=== PATIENT | female | born 1990 | race Caucasian/White ===

== ENCOUNTER 2021-08-05 00:13 | Inpatient (IN) ==
[2021-08-05] MEDS ORDERED: OXYTOCIN 30 UNITS/500 ML BAG IV PRN ×3 (00:41→08:12)
[2021-08-05] MEDS: LACTATED RINGER'S 1,000 ML IV PRN ×2 (01:11→02:12)
[2021-08-05] MEDS ORDERED: fentaNYL citrate 100 MCG/2 ML VIAL ONE (01:17)
[2021-08-05] MEDS ORDERED: ePHEDrine sulfate 50 MG/ML AMP ONE (01:17)
[2021-08-05] MEDS ORDERED: SODIUM CHLORIDE 0.9% INJ 10 ML VIAL ONE (01:17)
[2021-08-05] MEDS ORDERED: BUPIVACAINE 0.25% 30 ML VIAL ONE (01:17)
[2021-08-05] MEDS ORDERED: fentaNYL 2MCG/ML ROPIVACAINE 1.25MG/ML 100 ML BAG EPI ONE (01:18)
[2021-08-05 01:41] LABS: Hematocrit (blood only) 34.4 % (37-47); Hemoglobin 12.5 g/dL (12.0-16.0); Mean Corpuscular Hemoglobin 33.8 pg (25-34); Mean Corpuscular Hgb Conc 36.3 g/dL (32-36); Platelet Count 127 K/uL (130-400); Platelet Estimate Normal (Normal); RDW Coefficient of Variation 12.3 % (11.5-14.5)
[2021-08-05] MEDS ORDERED: diphenhydrAMINE 50 MG/ML VIAL IV PRN (01:51)
[2021-08-05] MEDS ORDERED: fentaNYL 2MCG/ML ROPIVACAINE 1.25MG/ML 100 ML BAG EPI PRN (01:51)
[2021-08-05] MEDS ORDERED: ePHEDrine sulfate 50 MG/ML AMP IV PRN (01:51)
[2021-08-05] MEDS ORDERED: NALBUPHINE HCL INJ 10 MG/ML AMP IV PRN (01:51)
[2021-08-05] MEDS ORDERED: NALOXONE HCL 1 MG in SODIUM CHLORIDE 0.9% 1000ML 1,000 ML IV PRN (01:51)
[2021-08-05] MEDS ORDERED: ONDANSETRON INJ 2 MG/ML 2 ML VIAL IV PRN (01:51)
[2021-08-05] MEDS ORDERED: NALOXONE HCL 0.4 MG/1 ML VIAL/CARP IV PRN (01:51)
--- NOTE | 2021-08-05 01:53 | Anesthesiology Consultation ---
Date of Service August 05, 2021 Assessment & Plan (1) Encounter for pre-operative examination: Chart Review Chart Review: Patient NOT seen in Pre Admission Testing and Acceptable Risk for Labor Epidural Consults Requested none History Height/Weight Height: 5 ft 4 in Weight: 67.132 kg Allergies Allergy/AdvReac Type Severity Reaction Status Date / Time No Known Allergies Allergy Verified 08/05/21 00:49 Medications Home Medications Medication Instructions Recorded Confirmed Last Taken albuterol sulfate 90 mcg/actuation 2 inh INHALATION DAILY PRN 06/05/21 08/05/21 Unknown aerosol inhaler (ProAir HFA) ferrous sulfate 325 mg (65 mg 325 mg PO DAILY 06/05/21 08/05/21 08/02/21 21:00 iron) tablet (Iron (ferrous sulfate)) fluticasone propionate 50 1 spray INTRANASAL DAILY 06/05/21 08/05/21 08/02/21 21:00 mcg/actuation nasal spray,suspension prenat.vits,arash,fbn-mhxf-icvor 1 tab PO DAILY 06/05/21 08/05/21 08/02/21 21:00 Active Medications Generic Name Dose Route Start Last Admin Trade Name Freq PRN Reason Stop Dose Admin Lactated Ringer's 1,000 mls @ 125 mls/hr 08/05/21 00:41 08/05/21 02:12 Lr IV 08/07/21 00:40 125 mls/hr .Q8H PRN Administration L&D Protocol Protocol Past Medical History Medical History Anemia Asthma Exercise / Class Metabolic Activity II 4-5 Yardwork/Stairs/Walk up hill Past Surgical History Surgical History Hx of LASIK Past Anesthesia History No Hx of Anesthesia Complications and No Family Hx of Anesthesia Complications History of PONV No Hx of PONV and No Hx of Motion Sickness Social History Smoking Status: Never smoker Hx Alcohol Use: No Hx Substance Use: No substance use type: does not use Physical Exam Vital Signs Last Vital Signs Temp 36.4 C L 08/05/21 00:46 Pulse 77 08/05/21 02:14 Resp 18 08/05/21 00:46 BP 110/69 08/05/21 00:46 Pulse Ox 100 08/05/21 02:14 Testing Laboratory Results 08/05/21 01:00
--- NOTE | 2021-08-05 06:00 | Communication Note ---
Date of Service: August 05, 2021 Pt with increasing pain. right sided hot spot notes. epidural catheter pulled back 1cm to 9-10 cm at skin. bolused 8ml of 2% lido with epi in divided doses. vss. pain somewhat improved but still with sig pressure. asked nurse to check patient with vaginal exam. nurse states patient is now complete and will soon start trial of pushing.
[2021-08-05] MEDS ORDERED: NURSING L&D Epidural Breakthrough Pain Update ONE (06:20)
[2021-08-05] MEDS ORDERED: LIDOCAINE 1% LOCAL 20 ML VIAL ONE (07:32)
[2021-08-05] MEDS ORDERED: ERYTHROMYCIN OP OINT 1 GM PKT ONE (07:46)
[2021-08-05] MEDS ORDERED: METHYLERGONOVINE MALEATE 0.2 MG/ML AMP ONE (08:11)
[2021-08-05] MEDS ORDERED: bisacodyL 10 MG SUPP PR PRN (08:12)
[2021-08-05] MEDS ORDERED: ACETAMINOPHEN 325 MG TAB PO PRN (08:12)
[2021-08-05] MEDS ORDERED: ACETAMINOPHEN W/CODEINE #3 1 TAB PO PRN (08:12)
[2021-08-05] MEDS ORDERED: BENZOCAINE 20% AER SPR 82.5 GM CAN EXT PRN (08:12)
[2021-08-05] MEDS ORDERED: HYDROCORTISONE ACETATE 25 MG SUPP PR PRN (08:12)
[2021-08-05] MEDS ORDERED: oxyCODONE/ACETAMINOPHEN 5mg/325mg TAB PO PRN (08:12)
[2021-08-05] MEDS ORDERED: DIPHTHERIA/TETANUS/PERTUSSIS 0.5 ML SYR/VIAL IM ONE (08:12)
[2021-08-05] MEDS ORDERED: METHYLERGONOVINE MALEATE 0.2 MG/ML AMP IM ONE (08:15)
--- NOTE | 2021-08-05 08:40 | Delivery Summary ---
DATE OF DELIVERY: 08/05/2021 DELIVERY NOTE: This is a note of a spontaneous vaginal delivery. The patient was admitted in active labor, 4-5 cm dilated with bulging membranes. After admission, she was fluid loaded, received epidu ral for pain control and then was started on IV Pitocin to augment her contractions. Subsequently mem branes were ruptured. There was some meconium noted in fluid. The went to full dilatation an d just with several pushes, she pushed out a live male infant via direct occiput anterior position ov er an intact perineum. The was suctioned through the mouth and the nose. Body was delivered without difficulty. Cord was allowed to pulsate for a minute, then clamped, cut by the father. Ther e was a large tear of the left labia minora up by the clitoral area. This area was infiltrated with local to hydrodissect the edges of the labia minora. Then, I started repairing it with a 3-0 Vicryl. The tear went into the vaginal mucosa at about 2 o'clock, found the extent of the repair. Anchored above the defect and ran it out to beyond the hymenal ring. I then placed one or two deep sutures a nd then I placed a mattress suture on the skin edges of the left labia minora. I did about 5 mattres s sutures on the outside and about 4 mattress sutures on the inside and this approximated the labia m inora with the skin edges everted. She also had a small tear on the right side and this was repaired just with a running 3-0 chromic catgut. Following this, hemostasis was good. The perineum was inta ct. There were no hematoma formation. The patient tolerated the procedure well. Job ID: [id number]
--- NOTE | 2021-08-05 10:10 | Anesthesia Procedure Note ---
Date of Service August 05, 2021 Anesthesia Post Epidural Note Vital Signs Vital Signs: Temp Pulse Resp BP Pulse Ox 97.9 F 73 16 111/73 100 08/05/21 05:15 08/05/21 10:03 08/05/21 07:00 08/05/21 10:03 08/05/21 07:29 Pain Intensity Right Abdomen: Pain Intensity: 3 Notes Mental Status: alert / awake / arousable and participated in evaluation Nausea / Vomiting: adequately controlled Pain: adequately controlled Airway Patency, RR, SpO2: stable & adequate BP & HR: stable & adequate Hydration State: stable & adequate Neuraxial Anesthesia: was administered and sensory block is resolving Anesthetic Complications: no major complications apparent and Pt Satisfied with anesthetic care Epidural: Removed without complications and With tip intact
[2021-08-05] MEDS: IBUPROFEN 600 MG TAB PO PRN ×2 (15:59→20:36)
[2021-08-05] MEDS: DOCUSATE SODIUM 100 MG CAP PO SCH (20:37)
[2021-08-06 07:27] LABS: Hematocrit (blood only) 30.2 % (37-47); Hemoglobin 10.7 g/dL (12.0-16.0); Mean Corpuscular Hemoglobin 34.1 pg (25-34); Mean Corpuscular Hgb Conc 35.4 g/dL (32-36); Mean Corpuscular Volume 96.2 fL (80-100); Mean Platelet Volume 11.4 fL (7.4-10.4); Platelet Count 126 K/uL (130-400); RDW Coefficient of Variation 12.6 % (11.5-14.5); RDW Standard Deviation 43.7 fL (36.4-46.3); Red Blood Count 3.14 M/uL (4.2-5.4); White Blood Count 10.75 K/uL (4.8-10.8)
--- NOTE | 2021-08-06 09:25 | Obstetrical Progress Note ---
Date of Service August 06, 2021 Assessment & Plan Admission and Anticipated Discharge Date Admission Date: August 05, 2021 Subjective abdomen soft and non tender ambulating well no calf tenderness vaginal bleeding scant hgb 10.4 Results & Data ([facility]) Vital Signs (Past 12 Hours) Vital Signs Temp Pulse Resp BP Pulse Ox 08/06/21 04:15 36.5 C 73 18 105/70 98 08/05/21 23:10 36.5 C 71 18 98/59 L 99
[2021-08-06] MEDS: PRENATAL VITAMIN 1 TAB PO SCH (09:45)
[2021-08-06] MEDS: IBUPROFEN 600 MG TAB PO PRN ×3 (09:45→22:38)
[2021-08-06] MEDS: DOCUSATE SODIUM 100 MG CAP PO SCH ×2 (09:46→20:54)
[2021-08-06] MEDS ORDERED: bisacodyL 5 MG TABEC PO SCH (20:00)
[2021-08-07] MEDS: IBUPROFEN 600 MG TAB PO PRN ×2 (04:12→08:12)
[2021-08-07 06:55] LABS: Hematocrit (blood only) 30.7 % (37-47); Hemoglobin 10.7 g/dL (12.0-16.0)
[2021-08-07] MEDS: DOCUSATE SODIUM 100 MG CAP PO SCH (08:12)
[2021-08-07] MEDS: PRENATAL VITAMIN 1 TAB PO SCH (08:12)
--- NOTE | 2021-08-07 09:30 | Obstetrical Progress Note ---
Date of Service August 07, 2021 Assessment & Plan Admission and Anticipated Discharge Date Admission Date: August 05, 2021 Subjective abdomen soft and non tender ambulating well no calf tenderness vaginal bleeding scant hgb 10.7 Results & Data ([facility]) Vital Signs (Past 12 Hours) Vital Signs Temp Pulse Resp BP Pulse Ox 08/07/21 07:15 36.5 C 74 16 101/65 98 08/07/21 04:00 36.5 C 72 18 108/76 98
== END 2021-08-07 11:30 | disposition home or self-care (01) | DRG 807 ==
LOC: OPB 00:13 → 4S1 00:17 → 4E2 12:28

== ENCOUNTER 2022-08-31 23:52 | Inpatient (IN) ==
[2022-09-01] MEDS ORDERED: LIDOCAINE 1% LOCAL 20 ML VIAL INFIL PRN (00:29)
[2022-09-01] MEDS ORDERED: OXYTOCIN 30 UNITS/500 ML BAG IV PRN ×2 (00:29→06:27)
[2022-09-01] MEDS ORDERED: BUTORPHANOL TARTRATE 1 MG/ML VIAL IM STA (00:44)
[2022-09-01 00:55] LABS: Hematocrit (blood only) 34.2 % (37.0-47.0); Hemoglobin 12.8 g/dl (12.0-16.0); Mean Corpuscular Hgb Conc 37.4 g/dL (32.0-36.0); Mean Corpuscular Volume 90.7 fL (80.0-100.0); Mean Platelet Volume 11.5 fL (9.4-12.4); Platelet Count 161 K/uL (130-400); RDW Coefficient of Variation 12.2 % (11.5-14.5); RDW Standard Deviation 40.3 fL (36.4-46.3); Red Blood Count 3.77 M/uL (4.20-5.40); White Blood Count 10.37 K/ul (4.8-10.8)
[2022-09-01] MEDS ORDERED: ONDANSETRON INJ 2 MG/ML 2 ML VIAL IV PRN ×2 (01:11→03:10)
[2022-09-01] MEDS ORDERED: ONDANSETRON INJ 2 MG/ML 2 ML VIAL ONE (01:16)
[2022-09-01] MEDS ORDERED: BUTORPHANOL TARTRATE 1 MG/ML VIAL IV STA (01:26)
[2022-09-01] MEDS: LACTATED RINGER'S 1,000 ML IV PRN ×2 (01:32→02:42)
[2022-09-01] MEDS ORDERED: BUPIVACAINE 0.25% PF 30 ML VIAL ONE (02:17)
[2022-09-01] MEDS ORDERED: SODIUM CHLORIDE 0.9% PF INJ 10 ML VIAL ONE (02:17)
[2022-09-01] MEDS ORDERED: ePHEDrine sulfate 50 MG/ML AMP ONE (02:17)
[2022-09-01] MEDS ORDERED: fentaNYL citrate PF 100 MCG/2 ML VIAL ONE (02:17)
[2022-09-01] MEDS ORDERED: fentaNYL 2MCG/ML ROPIVACAINE 1.25MG/ML 100 ML BAG EPI ONE (02:18)
[2022-09-01] MEDS ORDERED: LIDOCAINE 2%/EPINEPHRINE 1:200,000 20 ML PF ONE (02:18)
--- NOTE | 2022-09-01 02:36 | Anesthesiology Consultation ---
Date of Service September 01, 2022 Assessment & Plan (1) Encounter for pre-operative examination: Chart Review Chart Review: Acceptable Risk for Labor Epidural History Height/Weight Height: 5 ft 4 in Weight: 68.039 kg Allergies Allergy/AdvReac Type Severity Reaction Status Date / Time No Known Allergies Allergy Verified 07/04/22 09:39 Medications Home Medications Medication Instructions Recorded Confirmed Last Taken albuterol sulfate 90 mcg/actuation 2 inh inhalation DAILY PRN Wheezing 06/05/21 09/01/22 Unknown aerosol inhaler (ProAir HFA) ferrous sulfate 325 mg (65 mg 325 mg PO DAILY 06/05/21 09/01/22 08/31/22 16:00 iron) tablet (Iron (ferrous sulfate)) fluticasone propionate 50 1 spray intranasal DAILY 06/05/21 09/01/22 08/31/22 08:00 mcg/actuation nasal spray,suspension prenat.vits,arash,ada-xsjy-aedif 1 tab PO DAILY 06/05/21 09/01/22 08/25/22 clindamycin phosphate 1 % topical 1 applic topical DAILY #30 grams 04/16/22 09/01/22 Unknown gel ascorbic acid (vitamin C) 500 mg 500 mg PO DAILY 09/01/22 09/01/22 08/31/22 16:00 tablet (Vitamin C) fluticasone 113 mcg-salmeterol 14 1 inh inhalation BID 09/01/22 09/01/22 08/31/22 22:00 mcg/actuation breath activated powdr (AirDuo RespiClick) Active Medications Generic Name Dose Route Start Last Admin Trade Name Freq PRN Reason Stop Dose Admin Lactated Ringer's 1,000 mls @ 125 mls/hr 09/01/22 00:29 09/01/22 01:42 Lr IV 09/03/22 00:28 999 mls/hr .Q8H PRN Infusion L&D Protocol Protocol Past Medical History Medical History Anemia Asthma Past Surgical History Surgical History Hx of LASIK Social History Smoking Status: Never smoker Do You Dip or Chew Tobacco: No Hx Alcohol Use: No Hx Substance Use: No substance use type: does not use Physical Exam Vital Signs Last Vital Signs Temp 36.4 C L 09/01/22 01:13 Pulse 78 09/01/22 02:32 Resp 18 09/01/22 00:09 BP 109/71 09/01/22 00:08 Pulse Ox 100 09/01/22 02:32 Testing Laboratory Results 09/01/22 00:42
[2022-09-01] MEDS ORDERED: SODIUM CHLORIDE 0.9% PF INJ 10 ML VIAL EPI PRN (03:10)
[2022-09-01] MEDS ORDERED: fentaNYL 2MCG/ML ROPIVACAINE 1.25MG/ML 100 ML BAG EPI PRN (03:10)
[2022-09-01] MEDS ORDERED: fentaNYL citrate PF 100 MCG/2 ML VIAL EPI STA (03:10)
[2022-09-01] MEDS ORDERED: SODIUM CHLORIDE 0.9% PF INJ 10 ML VIAL EPI STA (03:10)
[2022-09-01] MEDS ORDERED: fentaNYL citrate PF 100 MCG/2 ML VIAL EPI PRN (03:10)
[2022-09-01] MEDS ORDERED: LIDOCAINE 2% MPF LOCAL 5 ML VIAL EPI PRN (03:10)
[2022-09-01] MEDS ORDERED: ePHEDrine sulfate 50 MG/ML AMP IV PRN (03:10)
[2022-09-01] MEDS ORDERED: BUPIVACAINE 0.25% PF 30 ML VIAL EPI STA (03:10)
[2022-09-01] MEDS ORDERED: NALOXONE HCL 0.4 MG/1 ML VIAL/CARP IV PRN (03:10)
[2022-09-01] MEDS ORDERED: BUPIVACAINE 0.25% PF 30 ML VIAL EPI PRN (03:10)
[2022-09-01] MEDS ORDERED: NALOXONE HCL 1 MG in SODIUM CHLORIDE 0.9% 1000ML 1,000 ML IV PRN (03:10)
[2022-09-01] MEDS ORDERED: ROPIVACAINE 0.5% PF 5 MG/ML 20 ML VIAL EPI PRN (03:10)
[2022-09-01] MEDS ORDERED: LIDOCAINE 2%/EPINEPHRINE 1:200,000 20 ML PF EPI STA (03:10)
[2022-09-01] MEDS ORDERED: ACETAMINOPHEN 325 MG TAB PO PRN (06:27)
[2022-09-01] MEDS ORDERED: BENZOCAINE 20% AER SPR 82.5 GM CAN EXT PRN (06:27)
[2022-09-01] MEDS ORDERED: DIPHTHERIA/TETANUS/PERTUSSIS Vaccine (Tdap, Age 7+yrs) 0.5mL SYR/VL IM ONE (06:27)
[2022-09-01] MEDS ORDERED: bisacodyL 10 MG SUPP PR PRN (06:27)
[2022-09-01] MEDS ORDERED: ACETAMINOPHEN W/CODEINE #3 1 TAB PO PRN (06:27)
[2022-09-01] MEDS ORDERED: HYDROCORTISONE ACETATE 25 MG SUPP PR PRN (06:27)
[2022-09-01] MEDS ORDERED: oxyCODONE/ACETAMINOPHEN 5mg/325mg TAB PO PRN (06:27)
--- NOTE | 2022-09-01 07:32 | Anesthesia Procedure Note ---
Date of Service September 01, 2022 Anesthesia Post Epidural Note Vital Signs Vital Signs: Temp Pulse Resp BP Pulse Ox 36.4 C L 84 18 107/57 L 100 09/01/22 05:21 09/01/22 07:27 09/01/22 05:21 09/01/22 07:20 09/01/22 07:27 Notes Mental Status: alert / awake / arousable and participated in evaluation Nausea / Vomiting: adequately controlled Pain: adequately controlled Airway Patency, RR, SpO2: stable & adequate BP & HR: stable & adequate Hydration State: stable & adequate Neuraxial Anesthesia: was administered and sensory block is resolving Anesthetic Complications: no major complications apparent and Pt Satisfied with anesthetic care Epidural: Removed without complications and With tip intact
[2022-09-01] MEDS: PRENATAL VITAMIN 1 TAB PO SCH (08:45)
[2022-09-01] MEDS: DOCUSATE SODIUM 100 MG CAP PO SCH ×2 (08:45→19:30)
[2022-09-01] MEDS: IBUPROFEN 600 MG TAB PO PRN ×3 (09:11→19:30)
--- NOTE | 2022-09-01 12:22 | Delivery Summary ---
Vaginal Delivery Summary Date of Service September 01, 2022 Vaginal Delivery Summary Patient is a 31-year-old 2 para 2. Followed in our office for care and delivery. Blood type is Rh-. Group B strep negative. Patient was admitted in active labor at 40 weeks and 2 days. She was nitrazine positive. On admission and she was approximately 2 cm a vertex presentation. She received a dose of IV Stadol for pain control. Followed by epidural anesthesia. She obtained good relief from the epidural anesthesia. She went to full dilatation. In and under half an hour she pushed out a live infant via direct occiput anterior position. Over an intact perineum. She incurred a left sided periurethral laceration. This was infiltrated with local. And then sutured with 3-0 Chromic Gut suture. The placenta was removed without difficulty. The cord was allowed to clamp for 1 minute after delivery of the infant. Estimated blood loss was 100 mL.
[2022-09-02] MEDS: IBUPROFEN 600 MG TAB PO PRN ×2 (03:30→08:33)
[2022-09-02 06:42] LABS: Hematocrit (blood only) 29.2 % (37.0-47.0); Hemoglobin 10.5 g/dl (12.0-16.0); Mean Corpuscular Hemoglobin 34.4 pg (25.0-34.0); Mean Corpuscular Volume 95.7 fL (80.0-100.0); Mean Platelet Volume 11.4 fL (9.4-12.4); Platelet Count 128 K/uL (130-400); RDW Coefficient of Variation 12.6 % (11.5-14.5); RDW Standard Deviation 43.9 fL (36.4-46.3); Red Blood Count 3.05 M/uL (4.20-5.40); White Blood Count 8.31 K/ul (4.8-10.8)
[2022-09-02] MEDS: PRENATAL VITAMIN 1 TAB PO SCH (08:32)
[2022-09-02] MEDS: DOCUSATE SODIUM 100 MG CAP PO SCH (08:32)
--- NOTE | 2022-09-02 09:19 | Obstetrical Progress Note ---
Date of Service September 02, 2022 Assessment & Plan Admission and Anticipated Discharge Date Admission Date: September 01, 2022 OB Progress Note abdomen soft and non tender no calf tenderness ambulating well vaginal bleeding scant hgb 10.5 Results & Data Vital Signs (Past 12 Hours) Vital Signs Temp Pulse Resp BP Pulse Ox O2 Del Method 09/02/22 07:50 36.5 C 57 L 18 107/69 99 Room Air 09/02/22 03:20 36.5 C 59 L 16 104/69 Room Air 09/01/22 23:14 36.7 C 82 16 99/62 L Room Air
[2022-09-02] MEDS ORDERED: bisacodyL 5 MG TABEC PO SCH (20:00)
== END 2022-09-02 12:10 | disposition home or self-care (01) | DRG 807 ==
LOC: OPB 23:52 → 4S1 23:54 → 4E2 09-01 09:11